=== PATIENT | male | born 1955 | race Hispanic/Latino ===

== ENCOUNTER 2020-05-15 12:31 | Inpatient (IN) | payer OTHER ==
[~2020-05-15] VITALS: Ht 177.8 cm; Wt 107.0 kg
[2020-05-15] MEDS: CEFTRIAXONE SOD 1 GM/NS 50 ML 50 ML IV SCH (13:15)
[2020-05-15] MEDS ORDERED: ASPIRIN 81 MG CHEW TAB PO ONE (13:15)
[2020-05-15] MEDS ORDERED: DEXAMETHASONE SOD PHOS 10 MG/1 ML VIAL IV ONE (13:15)
[2020-05-15 13:38] LABS: BASOPHILS % 0.1 % (0.0-1.0); HEMATOCRIT 48.4 % (38.2-49.6); HEMOGLOBIN 16.4 g/dL (14.0-18.0); LYMPHOCYTES # (AUTO) 1.1 (1.0-3.2); LYMPHOCYTES % 13.7 % (18.0-39.1); MEAN CORPUSCULAR HEMOGLOBIN 29.6 pg (28-32); MEAN CORPUSCULAR HGB CONC 33.9 g/dL (31-35); MEAN CORPUSCULAR VOLUME 87.4 fL (81-99); MONOCYTES # (AUTO) 0.5 (0.2-0.8); MONOCYTES % 5.8 % (4.4-11.3); NEUTROPHILS # (AUTO) 6.2 (2.1-6.9); NEUTROPHILS % 79.8 % (38.7-80.0); PLATELET COUNT 261 x10e3/uL (140-360); RED BLOOD COUNT 5.54 x10e6/uL (4.3-5.7); RED CELL DISTRIBUTION WIDTH 13.1 % (11.7-14.4)
[2020-05-15] MEDS: AZITHROMYCIN 500MG/NS 250 ML 250 ML IV SCH (13:45)
--- NOTE | 2020-05-15 13:45 | Diagnostic Imaging Report ---
EXAMINATION: CHEST SINGLE (PORTABLE) INDICATION: Cough, fever COMPARISON: None FINDINGS: LINES/TUBES:EKG leads overlie the chest. LUNGS:The lungs are moderately inflated. Patchy left lower lung opacities and hazy right midlung opacity. PLEURA:No pleural effusion or pneumothorax. MEDIASTINUM:The cardiomediastinal silhouette appears normal in size and shape. Atherosclerotic calcifications of the thoracic aorta. BONES/SOFT TISSUES:No acute osseous injury. ABDOMEN:No free air under the diaphragm. IMPRESSION: Left greater than right lower lung opacities consistent with pneumonia in the proper clinical setting. Signed by: May Roche MD on 05/15/2020 1:42 PM
[2020-05-15 14:19] LABS: ALBUMIN 3.2 g/dL (3.5-5.0); ALBUMIN/GLOBULIN RATIO 0.8 (0.8-2.0); ANION GAP 17.6 mmol/L (8-16); CALCIUM 8.7 mg/dL (8.4-10.2); CREATININE, SERUM 1.59 mg/dL (0.72-1.25); POTASSIUM 3.6 mmol/L (3.5-5.1)
[2020-05-15 14:27] LABS: CREATINE KINASE MB 2.4 ng/mL (0-5.0)
--- NOTE | 2020-05-15 14:38 | Emergency Department Note ---
History of Present Illnes History of Present Illness Chief Complaint: COVID PUI History of Present Illness This is a 64 year old male arrives to the ED for cough fever and generalized malaise, concerns of coronavirus . Historian: Patient Arrival Mode: Car Onset (how long ago): day(s) Severity: mild Onset quality: gradual Duration (how long): day(s) Timing of current episode: constant Progression: worsening Chronicity: new Context: Reports recent illness Past Medical/Family History Physician Review I have reviewed the patient's past medical and family history. Any updates have been documented here. Past Medical History Recent Fever: Yes Clinical Suspicion of Infectio: Yes New/Unexplained Change in Ment: No Past Medical History: Hypertension, Diabetes, Hyperlipedemia Past Surgical History: None Social History Smoking Cessation: Never Smoker Counseling Performed: No Alcohol Use: None Any Illegal Drug Use: No Physically hurt or threatened: No Other Any Pre-Existing Lines (PICC,: No Review of Systems Review of Systems Constitutional: Reports as per HPI, Reports chills, Reports fever EENTM: Reports no symptoms Cardiovascular: Reports no symptoms Respiratory: Reports as per HPI, Reports cough, Reports pain with cough, Reports dyspnea Gastrointestinal: Reports no symptoms Genitourinary: Reports no symptoms Musculoskeletal: Reports no symptoms Integumentary: Reports no symptoms Neurological: Reports no symptoms Psychological: Reports no symptoms Endocrine: Reports no symptoms Hematological/Lymphatic: Reports no symptoms Physical Exam Related Data Allergies: Coded Allergies: No Known Allergies (Unverified , 05/15/20) Triage Vital Signs Vital Signs Date Time Temp Pulse Resp B/P (MAP) Pulse Ox O2 Delivery O2 Flow Rate FiO2 05/15/20 13:00 100.7 105 26 145/95 85 Room Air Vital signs reviewed: Yes Physical Exam CONSTITUTIONAL Constitutional: Present ill appearing HENT HENT: Present normocephalic, Present atraumatic, Present oropharynx clear/moist, Present nose normal HENT L/R: Present left ext ear normal, Present right ext ear normal EYES Eyes: Reports PERRL, Reports conjunctivae normal NECK Neck: Present ROM normal PULMONARY Pulmonary: Present respiratory distress CARDIOVASCULAR Cardiovascular: Present regular rhythm, Present heart sounds normal, Present capillary refill normal, Present normal rate GASTROINTESTINAL Abdominal: Present soft, Present nontender, Present bowel sounds normal GENITOURINARY Genitourinary: Present exam deferred SKIN Skin: Present warm, Present dry MUSCULOSKELETAL Musculoskeletal: Present ROM normal NEUROLOGICAL Neurological: Present alert, Present oriented x 3, Present no gross motor or sensory deficits PSYCHOLOGICAL Psychological: Present mood/affect normal, Present judgement normal Results Laboratory Result Diagram: 05/15/20 1315 05/15/20 1315 Laboratory Laboratory Tests Test 05/15/20 13:15 White Blood Count 7.75 x10e3/uL (4.8-10.8) Red Blood Count 5.54 x10e6/uL (4.3-5.7) Hemoglobin 16.4 g/dL (14.0-18.0) Hematocrit 48.4 % (38.2-49.6) Mean Corpuscular Volume 87.4 fL (81-99) Mean Corpuscular Hemoglobin 29.6 pg (28-32) Mean Corpuscular Hemoglobin Concent 33.9 g/dL (31-35) Red Cell Distribution Width 13.1 % (11.7-14.4) Platelet Count 261 x10e3/uL (140-360) Neutrophils (%) (Auto) 79.8 % (38.7-80.0) Lymphocytes (%) (Auto) 13.7 % (18.0-39.1) Monocytes (%) (Auto) 5.8 % (4.4-11.3) Eosinophils (%) (Auto) 0.0 % (0.0-6.0) Basophils (%) (Auto) 0.1 % (0.0-1.0) Neutrophils # (Auto) 6.2 (2.1-6.9) Lymphocytes # (Auto) 1.1 (1.0-3.2) Monocytes # (Auto) 0.5 (0.2-0.8) Eosinophils # (Auto) 0.0 (0.0-0.4) Basophils # (Auto) 0.0 (0.0-0.1) Absolute Immature Granulocyte (auto 0.05 x10e3/uL (0-0.1) Sodium Level 134 mmol/L (136-145) Potassium Level 3.6 mmol/L (3.5-5.1) Chloride Level 97 mmol/L (98-107) Carbon Dioxide Level 23 mmol/L (22-29) Anion Gap 17.6 mmol/L (8-16) Blood Urea Nitrogen 22 mg/dL (7-26) Creatinine 1.59 mg/dL (0.72-1.25) Estimat Glomerular Filtration Rate 44 ML/MIN (60-) BUN/Creatinine Ratio 14 (6-25) Glucose Level 124 mg/dL (74-118) Calcium Level 8.7 mg/dL (8.4-10.2) Total Bilirubin 0.9 mg/dL (0.2-1.2) Aspartate Amino Transf (AST/SGOT) 67 IU/L (5-34) Alanine Aminotransferase (ALT/SGPT) 43 IU/L (0-55) Alkaline Phosphatase 64 IU/L (40-150) Creatine Kinase 581 IU/L (30-200) Creatine Kinase MB 2.40 ng/mL (0-5.0) Troponin I 0.011 ng/mL (0-0.300) Total Protein 7.4 g/dL (6.5-8.1) Albumin 3.2 g/dL (3.5-5.0) Globulin 4.2 g/dL (2.3-3.5) Albumin/Globulin Ratio 0.8 (0.8-2.0) Lab results reviewed: Yes Imaging Imaging results reviewed: Yes Impressions IMPRESSION: Left greater than right lower lung opacities consistent with pneumonia in the proper clinical setting. Procedures 12 Lead ECG Interpretation ECG Interpretation : ECG: ECG 1 Rhythm: sinus rhythm Rate: tachycardia QRS axis: right ST segments normal: Yes T waves normal: Yes Clinical Impression: non-specific ECG Critical Care Time Total Critical Care Time (min): 35 Critical care time exclusive o: separately billable procedures Critcal care necessary due to: respiratory failure Assessment & Plan Medical Decision Making MDM 65-year-old male arrives to the ED, fever and findings consistent with a coronavirus, patient's chest x-ray showed bilateral infiltrates/pneumonia. Patient requires supplemental oxygen given oxygen saturation about 85% on room air. Assessment & Plan Final Impression: (1) COVID-19 (2) Acute respiratory disease due to COVID-19 virus Depart Disposition: HOME, SELF-CARE Last Vital Signs Date Time Temp Pulse Resp B/P (MAP) Pulse Ox O2 Delivery O2 Flow Rate FiO2 05/15/20 13:48 100 35 118/86 96 05/15/20 13:00 100.7 Room Air Home Meds Reported Medications Hydrochlorothiazide (HYDROCHLOROTHIAZIDE) 25 Mg Tablet, 12.5 MG PO DAILY, #30 TAB 05/17/20 Amlodipine Besylate (AMLODIPINE BESYLATE) 5 Mg Tablet, 5 MG PO DAILY, #30 TAB 05/17/20 Metoprolol Succinate (METOPROLOL SUCCINATE) 25 Mg Tab.er.24h, 25 MG PO DAILY 05/17/20 Atorvastatin Calcium (ATORVASTATIN CALCIUM) 40 Mg Tablet, 40 MG PO DAILY, #30 TAB 05/17/20 Medications in the ED Aspirin 81 mg PRN ONCE PO Last administered on 05/15/20at 13:15; Admin Dose 81 MG; Start 05/15/20 at 13:15; Stop 05/15/20 at 13:21; Status DC Ceftriaxone Sodium 50 ml @ 100 mls/hr Q24H IV Last administered on 05/15/20at 13:15; Admin Dose 100 MLS/HR; Start 05/15/20 at 13:30; Stop 05/22/20 at 13:29 Azithromycin 250 ml @ 200 mls/hr Q24H IV Last administered on 05/15/20at 13:45; Admin Dose 200 MLS/HR; Start 05/15/20 at 14:00; Stop 05/22/20 at 13:59 Dexamethasone Sodium Phosphate 6 mg ONCE ONCE IV Last administered on 05/15/20at 13:17; Admin Dose 6 MG; Start 05/15/20 at 13:15; Stop 05/15/20 at 13:21; Status DC CHRISTOPHER HELLER DO May 15, 2020 14:38
--- NOTE | 2020-05-15 17:00 | NUR ---
Patient expressed that he would like to leave AMA MD aware.
--- NOTE | 2020-05-15 19:03 | NUR ---
report given to Keanu HOSKINS
[2020-05-15 20:07] LABS: INR 1.1; PARTIAL THROMBOPLASTIN TIME 31.1 seconds (23.8-35.5); PROTHROMBIN TIME 11.4 seconds (11.9-14.5)
--- NOTE | 2020-05-16 02:08 | NUR ---
consult [id number]
[2020-05-16] MEDS ORDERED: ALBUTEROL SULFATE HFA 8GM INHALATION AEROSOL INH PRN (08:45)
[2020-05-16] MEDS ORDERED: ACETAMINOPHEN 325 MG TAB PO PRN (08:45)
[2020-05-16] MEDS ORDERED: BENZONATATE 100 MG CAP PO PRN (08:45)
[2020-05-16] MEDS ORDERED: ONDANSETRON HCL INJ 2MG/ML 2ML 2 MG/ML VIAL IV PRN (08:45)
[2020-05-16] MEDS ORDERED: ENOXAPARIN INJ 80 MG/0.8 ML SYR SC SCH (09:00)
[2020-05-16] MEDS ORDERED: DEXAMETHASONE SOD PHOS INJ 4 MG/ML VIAL IV SCH (09:00)
[2020-05-16 09:01] LABS: BASOPHILS % 0.1 % (0.0-1.0); HEMATOCRIT 48.4 % (38.2-49.6); HEMOGLOBIN 16.3 g/dL (14.0-18.0); LYMPHOCYTES # (AUTO) 0.8 (1.0-3.2); LYMPHOCYTES % 11.3 % (18.0-39.1); MEAN CORPUSCULAR HEMOGLOBIN 29.3 pg (28-32); MEAN CORPUSCULAR HGB CONC 33.7 g/dL (31-35); MEAN CORPUSCULAR VOLUME 87.1 fL (81-99); MONOCYTES # (AUTO) 0.4 (0.2-0.8); MONOCYTES % 5.5 % (4.4-11.3); NEUTROPHILS % 82.6 % (38.7-80.0); PLATELET COUNT 279 x10e3/uL (140-360); RED BLOOD COUNT 5.56 x10e6/uL (4.3-5.7); RED CELL DISTRIBUTION WIDTH 13.2 % (11.7-14.4)
[2020-05-16 09:30] LABS: ANION GAP 15.6 mmol/L (8-16); CALCIUM 8.7 mg/dL (8.4-10.2); CREATININE, SERUM 1.44 mg/dL (0.72-1.25); POTASSIUM 3.6 mmol/L (3.5-5.1)
[2020-05-16] MEDS ORDERED: DEXTROSE 50% SYRINGE 50 ML IV PRN (10:00)
[2020-05-16] MEDS: ZINC SULFATE 220 MG CAP PO SCH (13:00)
[2020-05-16] MEDS: DEXAMETHASONE PHOS 4MG/ML 5ML MULTIDOSE VIAL IV SCH (13:00)
[2020-05-16] MEDS: ASCORBIC ACID 500 MG TAB PO SCH ×2 (13:00→17:24)
[2020-05-16] MEDS: CHOLECALCIFEROL 1,000 UNIT TAB PO SCH (13:00)
[2020-05-16] MEDS: BENZONATATE 100 MG CAP PO SCH ×3 (13:00→21:55)
[2020-05-16] MEDS: FAMOTIDINE 20 MG/2 ML VIAL IV SCH ×2 (13:10→21:55)
[2020-05-16] MEDS: ENOXAPARIN SOD INJ 40 MG/0.4 ML SYR SC SCH ×2 (13:15→21:55)
[2020-05-16] MEDS: CEFTRIAXONE SOD 1 GM/NS 50 ML 50 ML IV SCH (13:30)
[2020-05-16] MEDS: AZITHROMYCIN 500MG/NS 250 ML 250 ML IV SCH (13:48)
--- NOTE | 2020-05-16 16:00 | History and Physical ---
REASON FOR ADMISSION: Acute hypoxia associated with COVID-19 positive and respiratory insufficiency. HISTORY OF PRESENT ILLNESS: The patient is a 65-year-old male, who came to the hospital ER due to increasing shortness of breath. The patient had lab work done. Serology for COVID PCR detected positive. The patient also has slight dehydration with creatinine of 1.6. The patient is admitted for further evaluation. His CK level was 581. PAST MEDICAL HISTORY: He has hypertension, diabetes type 2, and dyslipidemia. PAST SURGICAL HISTORY: Noncontributory. SOCIAL HISTORY: The patient does not smoke or use alcohol. No regular drugs. ALLERGIES: NO KNOWN ALLERGIES. HOME MEDICATIONS: List is not available yet. PHYSICAL EXAMINATION: VITAL SIGNS: Temperature is 101, blood pressure 145/95, pulse rate 105, respirations 26. GENERAL: The patient is in respiratory insufficiency, slight distress, but otherwise no chest pain. HEENT: Normocephalic and atraumatic. Pupils reactive. Anicteric. NECK: Supple grossly. PULMONARY: Diminished breath sounds bilaterally with coarses at the bases. CARDIOVASCULAR: S1, S2. Tachycardia. ABDOMEN: Soft. No distention. EXTREMITIES: No cyanosis or edema. NEUROLOGIC: No gross focal deficit. Chest x-ray; left greater than right lower lobe opacity consistent with pneumonia. LABORATORY DATA: WBC is 7.7, hemoglobin 16.4, hematocrit 48.4, and platelets 261. Chemistry; sodium 134, potassium 3.6, chloride 97, bicarb 23, BUN is 22, creatinine 1.6, glucose is 124. IMPRESSION: 1. COVID-19 positive with possible pneumonia. 2. Bilateral lower lobe infiltrate with secondary pneumonia. 3. Acute hypoxia with acute respiratory insufficiency. 4. Baseline diabetes type 2, hypertension, dyslipidemia. PLAN: Consultation with Dr. Lacho Carranza and Dr. Mima Pelayo. Place the patient on antibiotics. COVID-19 protocol with Decadron and Lovenox. Supportive measure. . Zinc sulfate. Tessalon Perles as needed and schedule ascorbic acid. We will monitor the patient's lab work. We will place the patient on insulin sliding scale coverage for increase in blood sugar. Home medication when available, we will review. MD JUAN Rivera/MODL /[id number]
[2020-05-16] MEDS: INSULIN LISPRO 100 UNIT/1 ML 3ML VIAL SQ SCH ×3 (17:23→21:56)
--- NOTE | 2020-05-16 20:06 | Consultation ---
DATE OF CONSULTATION: HISTORY OF PRESENT ILLNESS: Mr. Chadd Antonio has been sick for more than two weeks with shortness of breath and cough. The patient comes into the hospital. He was evaluated and admitted. The patient does have diabetes mellitus. PHYSICAL EXAMINATION: GENERAL: He is currently alert, oriented, does not seem to be in acute distress. VITAL SIGNS: Stable, currently afebrile. HEENT: Not icteric. NECK: Supple. CHEST: Clear. HEART: S1, S2. No murmur. ABDOMEN: Soft. LABORATORY DATA: Reviewed. His COVID-19 was positive. Sodium 137, creatinine 1.44. IMPRESSION: Coronavirus disease-19, more than two weeks, too late for remdesivir, bilateral lower lobe infiltrate pneumonia of shrestha concern, superimposed bacterial pneumonia, diabetes mellitus. PLAN: To give him Rocephin 1 g daily five days, azithromycin 500 g a day daily three days, Decadron 6 mg p.o. daily for 10 days, Lovenox 0.5 mg/kg q.12 hours, vitamin C, vitamin D and zinc supplement. Oxygen as needed. Observe next few days. MD MEGGAN Grant/REMY /[id number]
--- NOTE | 2020-05-16 21:00 | Consultation ---
DATE OF CONSULTATION: Pulmonary Critical Care Consultation CHIEF COMPLAINT: Cough and dyspnea. HISTORY OF PRESENT ILLNESS: The patient is a 65-year-old man. He reports some dyspnea and cough. He also notes some fever. He had an elevated creatinine on admission, but has received some IV fluids. He says that he feels better at this time, but he is still on 5 L of oxygen. PAST MEDICAL HISTORY: 1. Diabetes. 2. Hypertension. 3. No prior cardiac disease. 4. No prior asthma or respiratory problems. PAST SURGICAL HISTORY: Noncontributory. ALLERGIES: NO KNOWN DRUG ALLERGIES. SOCIAL HISTORY: The patient is not an active smoker or drinker. FAMILY HISTORY: Noncontributory. REVIEW OF SYSTEMS: He reports fevers. There is no headache. He has cough and dyspnea. He has no chest pain. He has no nausea or vomiting. He is not having any leg pain. He denies any new neurological complaints. PHYSICAL EXAMINATION: VITAL SIGNS: The patient is afebrile. The blood pressure is 122/78, saturation is 96% on 2 L. The pulse is 76. HEENT: Shows no facial swelling or erythema. CARDIAC: Reveals regular rate and rhythm with normal S1, S2. LUNGS: Auscultation of lungs reveals crackles at the bases. There is no wheezing. ABDOMEN: Soft, nontender. There is no rebound or guarding. EXTREMITIES: Shows no leg edema or calf tenderness. There is no cyanosis or clubbing. SKIN: Shows no rashes. NEUROLOGICAL: Shows no focal abnormalities. LABORATORY DATA: White blood cell count is 7.3, hemoglobin is 16.3. The platelet count is 279. BUN to creatinine ratio is 27 to 1.44 and the blood sugar is 214. Other electrolytes are within normal limits. RADIOGRAPHIC DATA: Chest x-ray shows bilateral pulmonary infiltrates. IMPRESSION: 1. Viral pneumonia and COVID-19 infection. 2. Hypertension. 3. Diabetes. PLAN: 1. Continue current antibiotics. 2. Continue dexamethasone. 3. Continue Lovenox. 4. Wean oxygen as tolerated. 5. Evaluate for remdesivir. MD KIRSTEN Sheth/REMY /[id number]
[2020-05-16 22:31] VITALS: BP 138/97
[2020-05-17] VITALS (7 sets, daily range): BP systolic 118–136; BP diastolic 90–101
[2020-05-17] MEDS ORDERED: ATORVASTATIN CA40 MG PO (00:19)
[2020-05-17] MEDS ORDERED: HYDROCHLOROTHIA25 MG PO (00:19)
[2020-05-17] MEDS ORDERED: AMLODIPINE BESYL5 MG PO (00:19)
[2020-05-17] MEDS ORDERED: METOPROLOL SUCC25 MG PO (00:19)
[2020-05-17 06:12] LABS: BASOPHILS % 0.1 % (0.0-1.0); HEMATOCRIT 47.3 % (38.2-49.6); HEMOGLOBIN 16.1 g/dL (14.0-18.0); LYMPHOCYTES # (AUTO) 0.9 (1.0-3.2); LYMPHOCYTES % 9.3 % (18.0-39.1); MEAN CORPUSCULAR HEMOGLOBIN 29.6 pg (28-32); MEAN CORPUSCULAR VOLUME 86.9 fL (81-99); MONOCYTES # (AUTO) 0.6 (0.2-0.8); MONOCYTES % 5.8 % (4.4-11.3); NEUTROPHILS # (AUTO) 7.9 (2.1-6.9); NEUTROPHILS % 84.1 % (38.7-80.0); PLATELET COUNT 369 x10e3/uL (140-360); RED BLOOD COUNT 5.44 x10e6/uL (4.3-5.7); RED CELL DISTRIBUTION WIDTH 13.1 % (11.7-14.4)
[2020-05-17 06:16] LABS: BLOOD UREA NITROGEN 31 mg/dL (7-26); BUN/CREATININE RATIO 26 (6-25); CALCIUM 8.8 mg/dL (8.4-10.2); CARBON DIOXIDE 25 mmol/L (22-29); CHLORIDE 104 mmol/L (98-107); EST GLOMERULAR FILTRATION RATE > 60 ML/MIN (60-); GLUCOSE 191 mg/dL (74-118); SODIUM 139 mmol/L (136-145)
--- NOTE | 2020-05-17 07:15 | NUR ---
REPORT GIVEN TO DAYSHIFT NURSE. RESTING IN BED. ALERT AND ORIENTED. NO SIGNS IV INFILTRATION. BED LOCKED AND IN LOW POSITION. CALL LIGHT WITHIN REACH. BED ALARM ACTIVATED.
[2020-05-17] MEDS: INSULIN LISPRO 100 UNIT/1 ML 3ML VIAL SQ SCH ×4 (07:30→20:40)
[2020-05-17] MEDS: BENZONATATE 100 MG CAP PO SCH ×3 (10:00→20:40)
[2020-05-17] MEDS: CHOLECALCIFEROL 1,000 UNIT TAB PO SCH (10:00)
[2020-05-17] MEDS: ASCORBIC ACID 500 MG TAB PO SCH ×2 (10:00→16:12)
[2020-05-17] MEDS: ZINC SULFATE 220 MG CAP PO SCH (10:00)
[2020-05-17] MEDS: ENOXAPARIN SOD INJ 40 MG/0.4 ML SYR SC SCH ×2 (10:00→20:40)
[2020-05-17] MEDS: FAMOTIDINE 20 MG/2 ML VIAL IV SCH ×2 (10:00→20:40)
[2020-05-17] MEDS: DEXAMETHASONE PHOS 4MG/ML 5ML MULTIDOSE VIAL IV SCH (10:17)
[2020-05-17] MEDS: GUAIFENESIN/CODEINE 10 ML CUP PO PRN ×3 (10:17→20:40)
[2020-05-17] MEDS ORDERED: SODIUM CHLORIDE 0.9% 250ML 250 ML ONE ×2 (13:29→13:41)
[2020-05-17] MEDS: CEFTRIAXONE SOD 1 GM/NS 50 ML 50 ML IV SCH (13:41)
--- NOTE | 2020-05-17 14:03 | Progress Note ---
DATE: SUBJECTIVE: The patient reports feeling better today. He has less malaise and less cough. PHYSICAL EXAMINATION: VITAL SIGNS: The patient is afebrile. The blood pressure is 133/90, saturation is 95% on 6 L. HEENT: Shows no facial swelling or erythema. CARDIAC: Reveals regular rate and rhythm with normal S1 and S2. LUNGS: Auscultation of lungs reveals rhonchorous breath sounds bilaterally. There is no wheezing. ABDOMEN: Soft and nontender. There is no rebound or guarding. EXTREMITIES: Shows no leg edema or calf tenderness. There is no cyanosis or clubbing. SKIN: Shows no rashes. NEUROLOGICAL: Shows no focal abnormalities. LABORATORY DATA: BUN to creatinine ratio is 31 to 1.2. Other electrolytes are within normal limits. The white blood cell count is 9.4 and hemoglobin is 16.1. The platelet count is 369. IMPRESSION: 1. Viral pneumonia and COVID-19 infection. 2. Hypertension. 3. Diabetes. 4. Acute kidney injury. PLAN: 1. Continue antibiotics. 2. Continue dexamethasone. 3. Continue Lovenox. 4. Continue to monitor and control blood sugars. 5. Monitor creatinine. Lacho Carranza MD [facility]/REMY /[id number]
[2020-05-17] MEDS: AZITHROMYCIN 500MG/NS 250 ML 250 ML IV SCH (14:38)
--- NOTE | 2020-05-17 19:55 | NUR ---
Resumed care of patient. Patient awake and sitting up in bed, requesting shower at this time. No s/s of distress at this time. All safety measures in place. Will continue to monitor.
[2020-05-18] VITALS: BP 135/88
[2020-05-18 04:00] VITALS: BP 140/90
[2020-05-18 05:06] VITALS: BP 140/90
[2020-05-18 05:42] LABS: BASOPHILS % 0.1 % (0.0-1.0); HEMATOCRIT 44.4 % (38.2-49.6); HEMOGLOBIN 14.8 g/dL (14.0-18.0); LYMPHOCYTES # (AUTO) 0.9 (1.0-3.2); LYMPHOCYTES % 10.6 % (18.0-39.1); MEAN CORPUSCULAR HEMOGLOBIN 28.8 pg (28-32); MEAN CORPUSCULAR HGB CONC 33.3 g/dL (31-35); MEAN CORPUSCULAR VOLUME 86.5 fL (81-99); MONOCYTES # (AUTO) 0.5 (0.2-0.8); MONOCYTES % 5.9 % (4.4-11.3); NEUTROPHILS # (AUTO) 7.3 (2.1-6.9); NEUTROPHILS % 82.7 % (38.7-80.0); PLATELET COUNT 422 x10e3/uL (140-360); RED BLOOD COUNT 5.13 x10e6/uL (4.3-5.7); RED CELL DISTRIBUTION WIDTH 13.2 % (11.7-14.4)
[2020-05-18 06:17] LABS: ALANINE AMINOTRANSFERASE 50 IU/L (0-55); ALBUMIN 2.6 g/dL (3.5-5.0); ALBUMIN/GLOBULIN RATIO 0.7 (0.8-2.0); ALKALINE PHOSPHATASE 66 IU/L (40-150); ANION GAP 12.1 mmol/L (8-16); BLOOD UREA NITROGEN 28 mg/dL (7-26); BUN/CREATININE RATIO 25 (6-25); CALCIUM 8.5 mg/dL (8.4-10.2); CARBON DIOXIDE 26 mmol/L (22-29); CHLORIDE 105 mmol/L (98-107); CREATININE, SERUM 1.14 mg/dL (0.72-1.25); EST GLOMERULAR FILTRATION RATE > 60 ML/MIN (60-); GLUCOSE 195 mg/dL (74-118); POTASSIUM 4.1 mmol/L (3.5-5.1); SODIUM 139 mmol/L (136-145)
--- NOTE | 2020-05-18 06:57 | Diagnostic Imaging Report ---
EXAMINATION: CHEST SINGLE (PORTABLE) INDICATION: ^viral pneumonia COMPARISON: 05/15/2020 FINDINGS: AP view TUBES and LINES: None. LUNGS: Unchanged multifocal airspace disease PLEURA: No pleural effusion or pneumothorax. HEART AND MEDIASTINUM: The cardiomediastinal silhouette is unremarkable. BONES AND SOFT TISSUES: No acute osseous lesion. Soft tissues are unremarkable. UPPER ABDOMEN: No free air under the diaphragm. IMPRESSION: Unchanged pulmonary airspace disease consistent with viral pneumonia. Signed by: Darrick Mcgrath MD on 05/18/2020 6:54 AM
[2020-05-18 08:00] VITALS: BP 129/96
[2020-05-18] MEDS: FAMOTIDINE 20 MG/2 ML VIAL IV SCH (08:44)
[2020-05-18] MEDS: BENZONATATE 100 MG CAP PO SCH (08:44)
[2020-05-18] MEDS: ZINC SULFATE 220 MG CAP PO SCH (08:44)
[2020-05-18] MEDS: ENOXAPARIN SOD INJ 40 MG/0.4 ML SYR SC SCH (08:44)
[2020-05-18] MEDS: ASCORBIC ACID 500 MG TAB PO SCH (08:44)
[2020-05-18] MEDS: CHOLECALCIFEROL 1,000 UNIT TAB PO SCH (08:44)
[2020-05-18] MEDS: INSULIN LISPRO 100 UNIT/1 ML 3ML VIAL SQ SCH (08:49)
[2020-05-18 09:49] LABS: LYMPHOCYTES % (MANUAL) 17 % (19-48); MONOCYTES % (MANUAL) 4 % (3.4-9.0); NEUTROPHILS % (MANUAL) 79 % (40-74); PLATELET ESTIMATE ADEQUATE; PLATELET MORPHOLOGY COMMENT NORMAL; RBC MORPHOLOGY COMMENT NORMAL
--- NOTE | 2020-05-18 12:54 | NUR ---
Patient received discharge order from Dr. Guerrero. Patient is no longer needing 02 as he is sating 95% on room air. Patient has many prescriptions written by Dr. Guerrero that he was given and discussed with. Patient verbalized understanding and understood follow up and discharge instructions. Patient IV was removed at 1150. Patient walked to car, as he refused wheelchair, at 1230. No other questions or complaints.
--- NOTE | 2020-05-18 14:16 | Progress Note ---
DATE: SUBJECTIVE: The patient feels better. He has less dyspnea and less cough. He has saturating 95% on 2 L. He is eager to go home. PHYSICAL EXAMINATION: VITAL SIGNS: The blood pressure is 129/90, pulse is 74, and saturation is 95%. CARDIAC: Reveals regular rate and rhythm with normal S1, S2. LUNGS: Auscultation of lungs reveals clear breath sounds bilaterally. There is no wheezing. ABDOMEN: Soft, nontender. There is no rebound or guarding. EXTREMITIES: Shows no leg edema or calf tenderness. There is no cyanosis or clubbing. SKIN: Shows no rashes. NEUROLOGICAL: Shows no focal abnormalities. LABORATORY DATA: White blood cell count is 8.8, hemoglobin is 14.8. The platelet count is 442. BUN to creatinine ratio is 28 to 1.14. Other electrolytes within normal limits. Blood sugar is 170. IMPRESSION: 1. Viral pneumonia and COVID-19 infection. 2. Acute kidney injury. 3. Diabetes. PLAN: 1. Discharge home. 2. Complete course of dexamethasone as an outpatient. 3. Complete Zithromax. 4. Monitor and control blood sugars. 5. Follow up in 7 to 10 days. Lacho Carranza MD [facility]/REMY /[id number]
--- NOTE | 2020-05-19 02:34 | Discharge Summary ---
CONSULTANTS: 1. Lacho Carranza MD. 2. Mima Pelayo MD. FINAL DIAGNOSES: 1. Coronavirus disease-2019 associated with hypoxia and acute respiratory insufficiency and acute viral pneumonia. 2. Baseline hypertension. SUMMARY: The patient is a 65-year-old male, who came into the hospital with acute respiratory insufficiency, required oxygen support. The patient found to have COVID-19. The chest x-ray showed COVID-19 hypoxic pneumonia. The patient received antibiotics, Lovenox and oxygen support along with Decadron 10 mg IV one time and then subsequently 6 mg IV daily. The patient was also placed on COVID-19 protocol treatment. He is doing much better now. He is off the oxygen. His saturation well without oxygen. The patient will go home today. He will follow up as an outpatient 2 weeks from now with his family physician. If he is asymptomatic, he may not need to have repeat a COVID-19 testing. The patient is otherwise stable. He will quarantine himself 2 weeks for post discharge. DISCHARGE MEDICATIONS: 1. Zinc sulfate 220 mg twice a day. 2. ProAir HFA 2 puffs q.4 p.r.n. 3. Doxycycline monohydrate 100 mg twice a day for 10 days. 4. Decadron 4 mg daily for 7 days. 5. Tessalon Perles p.r.n. for cough. 6. Magnesium 400 mg b.i.d. 7. Potassium 10 mEq daily. 8. Ascorbic acid 500 mg b.i.d. The patient is stable. Resume his hypertensive medication. Again, the patient is stable. He is ambulatory. He is eating. He is tolerating all his diet. He will take 2 g sodium diet. Continue to rest as needed. No oxygen support at this time. He is saturating 95% on room air. MD JUAN Rivera/MODL /[id number]
== END 2020-05-18 12:30 | disposition home or self-care (01) | DRG 177 ==
LOC: ER 12:55 → ERHOLD 23:24 → IMCU 05-16 23:28
PROVIDERS: ADMIT Internal Medicine; ATTEND Internal Medicine
DX: U07.1 COVID-19 (principal); J12.89 Other viral pneumonia; N17.9 Acute kidney failure, unspecified; I10 Essential (primary) hypertension; R09.02 Hypoxemia; E11.9 Type 2 diabetes mellitus without complications
CPT/HCPCS: 36415; 71045; 80048; 80053; 82550; 82553; 82948; 84484; 85025; 85610; 85730; 87635; 93005; 96372; 99285; J0456; J0696; J1100; J1650; J7050

== ENCOUNTER 2020-05-21 10:30 | Emergency (ER) | payer MEDICARE, OTHER ==
[~2020-05-21] VITALS: Ht 177.8 cm; Wt 107.0 kg
[~2020-05-21 10:30] MED LIST: AMLODIPINE BESYL5 MG PO; ATORVASTATIN CA40 MG PO; HYDROCHLOROTHIA25 MG PO; METOPROLOL SUCC25 MG PO
[2020-05-21] MEDS ORDERED: SODIUM CHLORIDE 0.9% 1000ML 1,000 ML IV STA (10:51)
[2020-05-21] MEDS ORDERED: ASPIRIN 81 MG CHEW TAB PO ONE (11:00)
[2020-05-21] MEDS ORDERED: HYDROCODONE/APAP 10MG-325MG TAB PO ONE (11:00)
[2020-05-21] MEDS ORDERED: HEPARIN SOD (PORCINE) 1000 UNIT/ML SDV IV ONE (11:15)
[2020-05-21 11:16] LABS: BASOPHILS # (AUTO) 0.1 (0.0-0.1); BASOPHILS % 0.6 % (0.0-1.0); EOSINOPHILS # (AUTO) 0.2 (0.0-0.4); EOSINOPHILS % 1.3 % (0.0-6.0); HEMATOCRIT 49.1 % (38.2-49.6); HEMOGLOBIN 16.7 g/dL (14.0-18.0); MEAN CORPUSCULAR VOLUME 85.2 fL (81-99); MONOCYTES # (AUTO) 0.9 (0.2-0.8); MONOCYTES % 5.9 % (4.4-11.3); NEUTROPHILS # (AUTO) 11.5 (2.1-6.9); NEUTROPHILS % 79.7 % (38.7-80.0); PLATELET COUNT 493 x10e3/uL (140-360); RED BLOOD COUNT 5.76 x10e6/uL (4.3-5.7); RED CELL DISTRIBUTION WIDTH 13.1 % (11.7-14.4)
[2020-05-21] MEDS ORDERED: HEPARIN 25,000 UNIT 1,500 UNIT in DEXTROSE 5% 250ML 250 ML IV SCH (11:20)
[2020-05-21 11:27] LABS: INR 0.94; PROTHROMBIN TIME 13.1 seconds (11.9-14.5)
[2020-05-21 11:28] LABS: PARTIAL THROMBOPLASTIN TIME 26.2 seconds (23.8-35.5)
--- NOTE | 2020-05-21 11:34 | Diagnostic Imaging Report ---
EXAMINATION: CHEST SINGLE (PORTABLE) INDICATION: Pneumonia COMPARISON: Chest radiograph 05/18/2020 FINDINGS: LINES/TUBES:None LUNGS:The lungs are moderately inflated. Persistent bilateral multifocal patchy airspace opacities. PLEURA:No pleural effusion or pneumothorax. MEDIASTINUM:The cardiomediastinal silhouette appears normal in size and shape. Atherosclerotic calcifications of the thoracic aorta. BONES/SOFT TISSUES:No acute osseous injury. ABDOMEN:No free air under the diaphragm. IMPRESSION: No significant interval change. Signed by: May Roche MD on 05/21/2020 11:30 AM
[2020-05-21 11:36] LABS: ALANINE AMINOTRANSFERASE 224 IU/L (0-55); ALBUMIN/GLOBULIN RATIO 0.7 (0.8-2.0); ALKALINE PHOSPHATASE 89 IU/L (40-150); ANION GAP 14.7 mmol/L (8-16); BLOOD UREA NITROGEN 28 mg/dL (7-26); BUN/CREATININE RATIO 20 (6-25); CALCIUM 8.7 mg/dL (8.4-10.2); CARBON DIOXIDE 20 mmol/L (22-29); CHLORIDE 100 mmol/L (98-107); CREATINE KINASE 176 IU/L (30-200); CREATININE, SERUM 1.37 mg/dL (0.72-1.25); EST GLOMERULAR FILTRATION RATE 52 ML/MIN (60-); GLUCOSE 321 mg/dL (74-118); POTASSIUM 4.7 mmol/L (3.5-5.1); SODIUM 130 mmol/L (136-145)
[2020-05-21] MEDS ORDERED: HEPARIN SOD (PORCINE) 5,000 UNIT/ML VIAL ONE (11:58)
--- NOTE | 2020-05-21 12:11 | Emergency Department Note ---
History of Present Illnes History of Present Illness Chief Complaint: General Medicine Complaints History of Present Illness This is a 65 year old male c/o pain to right thigh radiating to right foot; right foot is cold to touch compared to left foot and sole of right foot presents as cyanotic states he called his home health nurse who told him to come into the er for further eval pt sob during triage and recently tested positive for covid. 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 Any updates have been documented here. 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 Social History Smoking Cessation: Former smoker Counseling Performed: No Alcohol Use: Social Any Illegal Drug Use: No TB Exposure/Symptoms: No Physically hurt or threatened: No Family History Family history of heart diseas: No Other Any Pre-Existing Lines (PICC,: No Review of Systems Review of Systems Constitutional: Reports no symptoms EENTM: Reports no symptoms Cardiovascular: Reports no symptoms Respiratory: Reports no symptoms Gastrointestinal: Reports no symptoms Genitourinary: Reports no symptoms Musculoskeletal: Reports no symptoms Integumentary: Reports no symptoms Neurological: Reports no symptoms Psychological: Reports no symptoms Endocrine: Reports no symptoms Hematological/Lymphatic: Reports no symptoms Physical Exam Related Data Allergies: Coded Allergies: No Known Allergies (Unverified , 05/15/20) Triage Vital Signs Vital Signs Date Time Temp Pulse Resp B/P (MAP) Pulse Ox O2 Delivery O2 Flow Rate FiO2 05/21/20 10:41 98.1 90 22 152/103 95 Room Air Vital signs reviewed: Yes Physical Exam CONSTITUTIONAL Constitutional: Present well-developed, Present well-nourished HENT HENT: Present normocephalic, Present atraumatic, Present oropharynx clear/moist, Present nose normal HENT L/R: Present left ext ear normal, Present right ext ear normal EYES Eyes: Reports PERRL, Reports conjunctivae normal NECK Neck: Present ROM normal PULMONARY Pulmonary: Present effort normal, Present breath sounds normal CARDIOVASCULAR Cardiovascular: Present regular rhythm, Present heart sounds normal, Present capillary refill normal, Present normal rate GASTROINTESTINAL Abdominal: Present soft, Present nontender, Present bowel sounds normal GENITOURINARY Genitourinary: Present exam deferred SKIN Skin: Present warm, Present dry MUSCULOSKELETAL Musculoskeletal: Present other (right leg cyanotic from distal thigh to foot, decreased cap refill, right foot cold to touch and non-palpable DP/PT) NEUROLOGICAL Neurological: Present alert, Present oriented x 3, Present no gross motor or sensory deficits PSYCHOLOGICAL Psychological: Present mood/affect normal, Present judgement normal Results Laboratory Result Diagram: 05/21/20 1056 05/21/20 1054 Laboratory Laboratory Tests Test 05/21/20 10:56 05/21/20 10:54 White Blood Count 14.48 x10e3/uL (4.8-10.8) Red Blood Count 5.76 x10e6/uL (4.3-5.7) Hemoglobin 16.7 g/dL (14.0-18.0) Hematocrit 49.1 % (38.2-49.6) Mean Corpuscular Volume 85.2 fL (81-99) Mean Corpuscular Hemoglobin 29.0 pg (28-32) Mean Corpuscular Hemoglobin Concent 34.0 g/dL (31-35) Red Cell Distribution Width 13.1 % (11.7-14.4) Platelet Count 493 x10e3/uL (140-360) Neutrophils (%) (Auto) 79.7 % (38.7-80.0) Lymphocytes (%) (Auto) 7.0 % (18.0-39.1) Monocytes (%) (Auto) 5.9 % (4.4-11.3) Eosinophils (%) (Auto) 1.3 % (0.0-6.0) Basophils (%) (Auto) 0.6 % (0.0-1.0) Neutrophils # (Auto) 11.5 (2.1-6.9) Lymphocytes # (Auto) 1.0 (1.0-3.2) Monocytes # (Auto) 0.9 (0.2-0.8) Eosinophils # (Auto) 0.2 (0.0-0.4) Basophils # (Auto) 0.1 (0.0-0.1) Absolute Immature Granulocyte (auto 0.79 x10e3/uL (0-0.1) Prothrombin Time 13.1 seconds (11.9-14.5) Prothromb Time International Ratio 0.94 Activated Partial Thromboplast Time 26.2 seconds (23.8-35.5) Sodium Level 130 mmol/L (136-145) Potassium Level 4.7 mmol/L (3.5-5.1) Chloride Level 100 mmol/L (98-107) Carbon Dioxide Level 20 mmol/L (22-29) Anion Gap 14.7 mmol/L (8-16) Blood Urea Nitrogen 28 mg/dL (7-26) Creatinine 1.37 mg/dL (0.72-1.25) Estimat Glomerular Filtration Rate 52 ML/MIN (60-) BUN/Creatinine Ratio 20 (6-25) Glucose Level 321 mg/dL (74-118) Calcium Level 8.7 mg/dL (8.4-10.2) Total Bilirubin 0.6 mg/dL (0.2-1.2) Aspartate Amino Transf (AST/SGOT) 76 IU/L (5-34) Alanine Aminotransferase (ALT/SGPT) 224 IU/L (0-55) Alkaline Phosphatase 89 IU/L (40-150) Creatine Kinase 176 IU/L (30-200) Total Protein 7.2 g/dL (6.5-8.1) Albumin 3.0 g/dL (3.5-5.0) Globulin 4.2 g/dL (2.3-3.5) Albumin/Globulin Ratio 0.7 (0.8-2.0) Lab results reviewed: Yes Imaging Imaging results reviewed: Yes Impressions Procedure: [id number] DX/CHEST SINGLE (PORTABLE) Exam Date: 05/21/20 Exam Time: 1110 REPORT STATUS: Signed EXAMINATION: CHEST SINGLE (PORTABLE) INDICATION: Pneumonia COMPARISON: Chest radiograph 05/18/2020 FINDINGS: LINES/TUBES:None LUNGS:The lungs are moderately inflated. Persistent bilateral multifocal patchy airspace opacities. PLEURA:No pleural effusion or pneumothorax. MEDIASTINUM:The cardiomediastinal silhouette appears normal in size and shape. Atherosclerotic calcifications of the thoracic aorta. BONES/SOFT TISSUES:No acute osseous injury. ABDOMEN:No free air under the diaphragm. IMPRESSION: No significant interval change. Signed by: May Roche MD on 05/21/2020 11:30 AM Procedures 12 Lead ECG Interpretation ECG Interpretation : ECG: ECG 1 Rail Operations Controller: Interpreted by ED physician Date: May 21, 2020 Time: 10:53 Rhythm: sinus rhythm Rate: normal (85) QRS axis: left Conduction: intraventricular conduction delay ST segments normal: Yes T wave inversion: V1 T waves flattening: aVL, V2 Clinical Impression: abnormal ECG Assessment & Plan Medical Decision Making MDM ischemic right leg - check cbc, chem's, cardiac enzymes, ecg, arterial duplex - r/o arterial occlusion, rhabdomyolysis, stemi/nstemi, electrolyte abnl Reassessment Reassessment I spoke with cardiology Dr Lovett, made him aware of pt and that hospital is full and ER also full with multiple ICU holds in ER - he feels pt needs procedure/revascularization and would benefit most by being transferred. Administration aware and initiated transfer - I spoke with Dr driver at [facility] who accepted pt for transfer Assessment & Plan Final Impression: (1) COVID-19 (2) Ischemia of right lower extremity Depart Disposition: TRANS TO OTHER [facility] Last Vital Signs Date Time Temp Pulse Resp B/P (MAP) Pulse Ox O2 Delivery O2 Flow Rate FiO2 05/21/20 11:14 79 28 149/94 93 05/21/20 10:41 98.1 Room Air Home Meds Reported Medications Hydrochlorothiazide (HYDROCHLOROTHIAZIDE) 25 Mg Tablet, 12.5 MG PO DAILY, #30 TAB 05/17/20 Amlodipine Besylate (AMLODIPINE BESYLATE) 5 Mg Tablet, 5 MG PO DAILY, #30 TAB 05/17/20 Metoprolol Succinate (METOPROLOL SUCCINATE) 25 Mg Tab.er.24h, 25 MG PO DAILY 05/17/20 Atorvastatin Calcium (ATORVASTATIN CALCIUM) 40 Mg Tablet, 40 MG PO DAILY, #30 TAB 05/17/20 Medications in the ED Sodium Chloride 1,000 ml @ 0 mls/hr Q0M STAT IV Last administered on 05/21/20at 11:33; Admin Dose 999 MLS/HR; Start 05/21/20 at 10:51; Stop 05/21/20 at 10:55; Status DC Aspirin 324 mg ONCE ONCE PO Last administered on 05/21/20at 11:34; Admin Dose 324 MG; Start 05/21/20 at 11:00; Stop 05/21/20 at 11:13; Status DC Acetaminophen/ Hydrocodone Bitart 1 ea ONCE ONCE PO Last administered on 05/21/20at 11:34; Admin Dose 1 EA; Start 05/21/20 at 11:00; Stop 05/21/20 at 11:17; Status DC Heparin Sodium (Porcine) 6,900 unit ONCE ONCE IV Last administered on 05/21/20at 11:59; Admin Dose 6,900 UNIT; Start 05/21/20 at 11:15; Stop 05/21/20 at 11:16; Status DC Heparin Sodium/ Dextrose 1500 unit/Dextrose 250 ml @ 0 mls/hr TITRATE IV Last administered on 05/21/20at 11:59; Admin Dose 15 MLS/HR; Start 05/21/20 at 11:20; Stop 05/28/20 at 11:19 Heparin Sodium (Porcine) 5,000 unit STK-MED ONCE .ROUTE ; Start 05/21/20 at 11:58; Stop 05/21/20 at 11:52; Status DC MARKOS ARMENTA MD May 21, 2020 12:11
[2020-05-21 12:50] LABS: BAND NEUTROPHILS % (MANUAL) 7 %; EOSINOPHILS % (MANUAL) 1 % (0-7); LYMPHOCYTES % (MANUAL) 6 % (19-48); MONOCYTES % (MANUAL) 4 % (3.4-9.0); NEUTROPHILS % (MANUAL) 82 % (40-74)
--- NOTE | 2020-05-21 13:12 | NUR ---
Report attempted at this time to [address] [id number].
[2020-05-21 13:20] VITALS: BP 165/75
== END 2020-05-21 15:10 | disposition other institution (70) ==
LOC: ER 12:58
DX: U07.1 COVID-19 (principal); I99.8 Other disorder of circulatory system
CPT/HCPCS: 36415; 71045; 80053; 82550; 82553; 84484; 85025; 85610; 85730; 93005; 93925; 99284; J1644 ×2; J7030

== ENCOUNTER → 2020-10-01 | Outpatient (CLI) | payer MEDICARE | LOC: CARD 11:02 | PROVIDERS: ATTEND Internal Medicine | DX: I70.203 Unspecified atherosclerosis of native arteries of extremities, bilateral legs (principal) | CPT/HCPCS: 93925 ==

== ENCOUNTER → 2021-08-04 | Outpatient (CLI) | payer MEDICARE | LOC: RAD 08:43 | PROVIDERS: ATTEND Internal Medicine | DX: R05 Cough (principal); R06.02 Shortness of breath | CPT/HCPCS: 71046; 93306 ==

== ENCOUNTER → 2021-12-03 | Outpatient (CLI) | payer MEDICARE ==
[~2021-12-03] MED LIST changes: +BUPIVACAINE HCL 0.5% INJ 30 ML VIAL INJ ONE
== END ==
LOC: CARD 08:53
PROVIDERS: ATTEND Internal Medicine
DX: I73.9 Peripheral vascular disease, unspecified (principal); I70.8 Atherosclerosis of other arteries
CPT/HCPCS: 93925

== ENCOUNTER → 2021-12-25 | Outpatient (CLI) | payer MEDICARE ==
[~2021-12-25] MED LIST changes: -BUPIVACAINE HCL 0.5% INJ 30 ML VIAL INJ ONE; +IOPAMIDOL 370 MG/ML 200 ML INFUS..BTL INJ ONE; +SODIUM CHLORIDE 0.9% 100 ML ONE; +SODIUM CHLORIDE 0.9% 500ML 500 ML ONE
[2021-12-25 08:41] LABS: ANION GAP 12.6 mmol/L (8-16); CALCIUM 9.5 mg/dL (8.4-10.2); CREATININE, SERUM 1.39 mg/dL (0.72-1.25); POTASSIUM 4.6 mmol/L (3.5-5.1)
== END ==
LOC: CT 07:59
PROVIDERS: ATTEND Internal Medicine Interventional Cardiology
DX: I73.9 Peripheral vascular disease, unspecified (principal)
CPT/HCPCS: 36415; 75635; 80048; 96360; J7040; J7050; Q9967

== ENCOUNTER 2023-04-11 07:06 | Emergency (ER) | payer MEDICARE ==
[~2023-04-11] VITALS: Ht 177.8 cm; Wt 107.0 kg
[~2023-04-11 07:06] MED LIST changes: -IOPAMIDOL 370 MG/ML 200 ML INFUS..BTL INJ ONE; -SODIUM CHLORIDE 0.9% 100 ML ONE; -SODIUM CHLORIDE 0.9% 500ML 500 ML ONE
[2023-04-11 07:11] VITALS: O2SAT 99
[2023-04-11] MEDS ORDERED: KETOROLAC TROMETHAMINE 30 MG/ML VIAL IM STA (07:18)
[2023-04-11] MEDS ORDERED: NAPROXEN250 MG PO (07:20)
[2023-04-11] MEDS ORDERED: ULTRAM 50MG50 MG PO (07:20)
== END 2023-04-11 07:40 | disposition home or self-care (01) ==
LOC: ER 07:09
DX: M79.604 Pain in right leg (principal); M76.891 Other specified enthesopathies of right lower limb, excluding foot; I10 Essential (primary) hypertension; E78.5 Hyperlipidemia, unspecified
CPT/HCPCS: 99283; J1885

== ENCOUNTER → 2024-05-29 | Outpatient (REF) | payer MEDICARE ==
[~2024-05-29] MED LIST changes: +NAPROXEN250 MG PO; +ULTRAM 50MG50 MG PO
== END ==
LOC: RAD 13:01
PROVIDERS: ATTEND Internal Medicine
DX: M54.9 Dorsalgia, unspecified (principal)
CPT/HCPCS: 71046

== ENCOUNTER 2024-06-14 13:01 | Emergency (ER) | payer MEDICARE ==
[~2024-06-14] VITALS: Ht 177.8 cm; Wt 103.9 kg
[2024-06-14 13:45] VITALS: PULSE 71; RESP 16; TEMP 98; O2SAT 97
[2024-06-14] MEDS ORDERED: GLIMEPIRIDE2 MG PO (13:59)
[2024-06-14] MEDS ORDERED: CLOPIDOGREL75 MG PO (13:59)
[2024-06-14] MEDS ORDERED: GABAPENTIN300 MG PO (13:59)
[2024-06-14] MEDS ORDERED: METOPROLOL SUCC50 MG PO (13:59)
[2024-06-14] MEDS ORDERED: LISINOPRIL20 MG PO (13:59)
== END 2024-06-14 14:20 | disposition home or self-care (01) ==
LOC: ER 13:08
DX: L03.311 Cellulitis of abdominal wall (principal); I10 Essential (primary) hypertension; E11.9 Type 2 diabetes mellitus without complications; E78.5 Hyperlipidemia, unspecified
CPT/HCPCS: 99282

== ENCOUNTER → 2024-09-04 | Outpatient (REF) | payer MEDICARE ==
[~2024-09-04] MED LIST changes: +CLOPIDOGREL75 MG PO; +GABAPENTIN300 MG PO; +GLIMEPIRIDE2 MG PO; +LISINOPRIL20 MG PO; +METOPROLOL SUCC50 MG PO
== END ==
LOC: RAD 14:22
PROVIDERS: ATTEND Internal Medicine
DX: M25.511 Pain in right shoulder (principal)

== ENCOUNTER 2024-11-10 10:40 | Emergency (ER) | payer MEDICARE ==
[~2024-11-10] VITALS: Ht 177.8 cm; Wt 103.9 kg
[2024-11-10] MEDS: TRAMADOL HCL 50 MG TAB PO ONE (12:53)
[2024-11-10 13:02] VITALS: PULSE 57; RESP 16
[2024-11-10 13:29] VITALS: BP 127/94; PULSE 58; RESP 16; O2SAT 96
[2024-11-10 13:34] VITALS: TEMP 98.1
== END 2024-11-10 13:36 | disposition home or self-care (01) ==
LOC: ER 10:45
DX: M79.661 Pain in right lower leg (principal); M72.2 Plantar fascial fibromatosis; I73.9 Peripheral vascular disease, unspecified; M70.861 Other soft tissue disorders related to use, overuse and pressure, right lower leg; I10 Essential (primary) hypertension; E11.9 Type 2 diabetes mellitus without complications; E78.5 Hyperlipidemia, unspecified
CPT/HCPCS: 93926; 93971; 99283

== ENCOUNTER → 2024-12-24 | Outpatient (REF) | payer MEDICARE | LOC: RAD 14:28 | PROVIDERS: ATTEND Internal Medicine | DX: R05.9 Cough, unspecified (principal) | CPT/HCPCS: 71046 ==

== ENCOUNTER 2025-06-06 08:09 | Emergency (ER) | payer MEDICARE ==
[~2025-06-06] VITALS: Ht 175.3 cm; Wt 102.1 kg
[2025-06-06 08:30] VITALS: TEMP 97.7
[2025-06-06 09:15] LABS: BASOPHILS % 0.9 % (0.0-1.0); EOSINOPHILS % 3.6 % (0.0-6.0); LYMPHOCYTES % 27.8 % (18.0-39.1); MONOCYTES % 8.7 % (4.4-11.3); NEUTROPHILS % 58.4 % (38.7-80.0); RED CELL DISTRIBUTION WIDTH 14.0 % (11.7-14.4)
[2025-06-06 09:24] LABS: EST GLOMERULAR FILTRATION RATE 26.0 ML/MIN (>=60)
[2025-06-06 10:08] VITALS: PULSE 67; RESP 18; O2SAT 100
[2025-06-06] MEDS: ALBUTEROL/IPRATROPIUM 3 ML NEB NEB ONE (10:08)
[2025-06-06 11:25] VITALS: PULSE 57; RESP 16; O2SAT 99
== END 2025-06-06 11:25 | disposition home or self-care (01) ==
LOC: ER 08:20
DX: R42 Dizziness and giddiness (principal); E87.6 Hypokalemia; R06.2 Wheezing; I10 Essential (primary) hypertension; E11.65 Type 2 diabetes mellitus with hyperglycemia; E78.5 Hyperlipidemia, unspecified; R94.31 Abnormal electrocardiogram [ECG] [EKG]
CPT/HCPCS: 36415; 71045; 80053; 83880; 85025; 93005; 94799; 99284

== ENCOUNTER 2025-09-02 14:48 | Emergency (ER) | payer MEDICARE ==
[~2025-09-02] VITALS: Ht 175.3 cm; Wt 102.1 kg
[2025-09-02] MEDS ORDERED: LIDOCAINE HCL 1% LOCAL INJ 20 ML VIAL ONE (15:04)
[2025-09-02 15:08] VITALS: TEMP 98.3
[2025-09-02 15:11] LABS: BASOPHILS % 0.8 % (0.0-1.0); EOSINOPHILS % 3.4 % (0.0-6.0); LYMPHOCYTES % 21.5 % (18.0-39.1); MONOCYTES % 6.3 % (4.4-11.3); NEUTROPHILS % 67.4 % (38.7-80.0); RED CELL DISTRIBUTION WIDTH 14.1 % (11.7-14.4)
[2025-09-02 15:34] LABS: EST GLOMERULAR FILTRATION RATE 45.0 ML/MIN (>=60)
[2025-09-02] MEDS ORDERED: ULTRAM 50MG50 MG PO (16:38)
[2025-09-02 16:39] VITALS: PULSE 72; RESP 16
[2025-09-02 16:55] VITALS: BP 123/86; PULSE 72; RESP 16; O2SAT 98
== END 2025-09-02 16:53 | disposition home or self-care (01) ==
LOC: ER 14:54
DX: M79.671 Pain in right foot (principal); M11.271 Other chondrocalcinosis, right ankle and foot; I10 Essential (primary) hypertension; E11.65 Type 2 diabetes mellitus with hyperglycemia; E78.5 Hyperlipidemia, unspecified
CPT/HCPCS: 36415; 73630; 80053; 85025; 99284; J2003